=== PATIENT | female | born 1945 | race American Indian/Alaskan Native ===

== ENCOUNTER 2017-05-22 09:01 | Outpatient (CLI) | payer MEDICARE ==
--- NOTE | 2017-05-22 13:51 | Mammography Report ---
BILATERAL DIGITAL SCREENING MAMMOGRAM with CAD: 05/22/17 09:01:00 CLINICAL: Routine screening. COMPARISON: 02/15/15 FINDINGS: The breasts are heterogeneously dense, which may obscure small masses.No mass, architectural distortion or suspicious calcifications. IMPRESSION: No mammographic evidence of malignancy. BI-RADS CATEGORY: 1 -- Negative RECOMMENDATION: Routine mammographic screening in one year. COMMENT: Patient follow-up letters are generated by our [employer] application.
== END 2017-05-22 09:02 | disposition home or self-care (01) ==
LOC: SPVWC 09:01
PROVIDERS: ATTEND Internal Medicine
DX: Z12.31 Encounter for screening mammogram for malignant neoplasm of breast (principal)
CPT/HCPCS: 77067

== ENCOUNTER 2018-06-03 11:04 | Outpatient (CLI) | payer MEDICARE ==
--- NOTE | 2018-06-03 13:58 | Mammography Report ---
BILATERAL DIGITAL SCREENING MAMMOGRAM with CAD: 06/03/18 11:04:00 CLINICAL: Routine screening. COMPARISON:05/22/17 FINDINGS: The breasts are heterogeneously dense, which may obscure small masses. No mass, architectural distortion or suspicious calcifications. IMPRESSION: No mammographic evidence of malignancy. BI-RADS CATEGORY: 1 - - Negative RECOMMENDATION: Routine mammographic screening in one year. COMMENT: Patient follow-up letters are generated by our [employer] application.
== END 2018-06-03 11:05 | disposition home or self-care (01) ==
LOC: SPVWC 11:04
PROVIDERS: ATTEND Internal Medicine Endocrinology, Diabetes & Metabolism
DX: Z12.31 Encounter for screening mammogram for malignant neoplasm of breast (principal)
CPT/HCPCS: 77067

== ENCOUNTER 2018-06-10 13:30 | Outpatient (CLI) | payer MEDICARE ==
[2018-06-10 14:17] LABS: Blood Urea Nitrogen 15 mg/dL (7-17)
--- NOTE | 2018-06-10 19:10 | Cat Scan Report ---
PROCEDURE: CT CHEST W CON TECHNIQUE: Following administration of IV contrast axial helical imaging was performed through the c hest with sagittal and coronal reformatted images obtained. HISTORY: R91.8 ABNORAML CHEST XRAY COMPARISONS: None FINDINGS: There is bilateral pulmonary emphysema. There are multiple large subpleural blebs. There is an approximately 2.2 cm x 2 cm by the 2.4 cm mass in the right lower lobe with spiculated ma rgins. There is an adjacent linear collection of smaller nodular densities in the right lower lobe. There is right hilar and mediastinal adenopathy. There is no evidence of pneumothorax or pleural fluid collection. The trachea and bronchi are patent. The heart appears to be enlarged. There is atherosclerotic vascular calcification of the coronary art eries. The thoracic aorta is normal caliber. The visualized portion of the upper abdomen is notable for dilatation of the pancreatic duct. The bony structures are notable for prominent kyphosis of the thoracic spine with previous multiple l evel laminectomy in the upper and mid thoracic spine. IMPRESSION: 1. Approximately 2 cm mass right lower lobe with associated right hilar and mediastinal adenopathy wi th adjacent smaller nodular densities. This is most suggestive of malignancy. 2. Pulmonary emphysema with multiple large subpleural blebs. 3. Cardiomegaly with atherosclerotic vascular calcification of the coronary arteries. 4. Appearance of dilatation of the pancreatic duct. Comparison with previous CT abdomen and pelvis wo uld be helpful. 5. Postsurgical change thoracic spine with prominent kyphosis. This document is electronically signed by Yanira Miller MD., June 10 2018 07:08:50 PM ET
== END 2018-06-10 13:31 | disposition home or self-care (01) ==
LOC: CT 13:30
PROVIDERS: ATTEND Internal Medicine
DX: J43.9 Emphysema, unspecified (principal); I25.10 Atherosclerotic heart disease of native coronary artery without angina pectoris; I51.7 Cardiomegaly; M40.294 Other kyphosis, thoracic region; Z98.890 Other specified postprocedural states
CPT/HCPCS: 36415; 71260; 82565; 84520